=== PATIENT | male | born 1955 | race Caucasian/White ===

== ENCOUNTER 2019-04-13 09:38 | Inpatient (IN) ==
--- NOTE | 2019-03-29 15:23 | PAT Medication Instructions ---
Medication Instructions Date of Service March 29, 2019 Home Medications aspirin [Aspir-81] 81 mg PO QAM doxycycline hyclate 100 mg PO QAM losartan 100 mg PO QAM meloxicam 15 mg PO QAM metoprolol succinate 12.5 mg PO QAM multivitamin 1 tab PO QAM pantoprazole 40 mg PO QAM rosuvastatin 40 mg PO QAM ASK your surgeon for instructions meloxicam 15 mg PO QAM DO NOT take the morning of surgery losartan 100 mg PO QAM metoprolol succinate 12.5 mg PO QAM multivitamin 1 tab PO QAM Take morning of surgery With a small sip of water, OTHERWISE NOTHING TO EAT OR DRINK AFTER MIDNIGHT: aspirin [Aspir-81] 81 mg PO QAM doxycycline hyclate 100 mg PO QAM metoprolol succinate 12.5 mg PO QAM pantoprazole 40 mg PO QAM rosuvastatin 40 mg PO QAM Other Notes If you have any questions please call us at [phone] or [phone] or [phone] or [phone]
--- NOTE | 2019-03-30 13:46 | Anesthesiology Consultation ---
Date of Service March 30, 2019 Assessment & Plan (1) Encounter for pre-operative examination: - Cardiology: 01/26/19: "low risk" Chart Review Chart Review: Acceptable Risk for Surgery (pending EKG tracings (written report in chart)) and Patient seen in Pre Admission Testing Teaching & Discussion Pre-Anesthesia Teaching/Discussion Notes: Instructed NPO after midnight before surgery,except medications with 15 cc of water. Medication instructions provi ded according to the PAT guidelines. History Surgery Operation Date: 04/13/19 07:45 Proposed Procedures p L3-S1 Lumbar Decompression and Fusion, Spinal Cord Monitoring - Yamil jaffe DO Height/Weight Height: 5 ft 10 in Weight: 91.3 kg Allergies Allergy/AdvReac Type Severity Reaction Status Date / Time lisinopril AdvReac Unknown DRY COUGH Verified 03/23/19 08:56 Medications Home Medications Medication Instructions Recorded Confirmed Last Taken aspirin [Aspir-81] 81 mg PO QAM 03/23/19 03/23/19 Unknown doxycycline hyclate 100 mg PO QAM 03/23/19 03/23/19 Unknown losartan 100 mg PO QAM 03/23/19 03/23/19 Unknown meloxicam 15 mg PO QAM 03/23/19 03/23/19 Unknown metoprolol succinate 12.5 mg PO QAM 03/23/19 03/23/19 Unknown multivitamin 1 tab PO QAM 03/23/19 03/23/19 Unknown pantoprazole 40 mg PO QAM 03/23/19 03/23/19 Unknown rosuvastatin 40 mg PO QAM 03/23/19 03/23/19 Unknown Past Medical History Medical History (Updated 03/31/19 @ 08:22 by Anais Avila) Arthritis CAD (coronary artery disease) 2013= LISA x 2 to LCX Chronic back pain B/L hip radiation GERD (gastroesophageal reflux disease) controlled Hyperlipidemia Hypertension Myocardial Infarction NSTEMI (2013) Rosacea on doxycycline Exercise / Class Metabolic Activity II 4-5 Yardwork/Stairs/Walk up hill Past Family History Family History Aunt Family hx of colon cancer Past Surgical History Surgical History History of arthroscopy of left shoulder History of cardiac cath 2014= stents x 2 History of colonoscopy History of esophagogastroduodenoscopy (EGD) Past Anesthesia History No Hx of Anesthesia Complications and No Family Hx of Anesthesia Complications History of PONV No Hx of PONV and No Hx of Motion Sickness Social History Smoking Status: Light tobacco smoker tobacco type: cigarettes and smokeless tobacco Smoking cigarettes per day: 1-2 CIGS A DAY X OFF AND ON-FOR YRS Do You Dip or Chew Tobacco: Yes (4-5 POUCHES/DAY; ADVISED NPO DOS) Hx Alcohol Use: No Alcohol Intake Frequency Comment: RECOVERING ALCOHOLIC; NO ETOH X MONTHS Hx Substance Use: No Review of Systems Reflux controlled. Patient denies chest pain, shortness of breath, dyspnea on exertion, cough, wheezing, palpitations. Physical Exam Vital Signs VITALS BP 121/77 P 65 TEMP 97.9 SP02 96%RA RESP 18 PHYSICAL Full neck and c-spine range of motion (+ cervicalgia with extension). Full TMJ range of motion. TMD 4 finger breaths Mallampati Score 2 Dentition: missing molars, crowns on molars Lungs: clear throughout to auscultation Cardiac: regular rate and rhythm, no murmurs noted Spine: normal Carotid arteries: negative bruit Extremities: no edema + trimmed mccabe Testing Laboratory Results 03/30/19 14:05 PT 10.4 Seconds (9.0-12.0) 03/30/19 14:05 INR 1.0 (0.9-1.1) 03/30/19 14:05 APTT 25.8 Seconds (21.0-31.0) 03/30/19 14:05 Urine Color Yellow 03/30/19 14:05 Urine Appearance Clear (Clear) 03/30/19 14:05 Urine pH 8.0 (4.5-7.5) H 03/30/19 14:05 Ur Specific [place] 1.011 (1.000-1.030) 03/30/19 14:05 Urine Protein Negative (Negative) 03/30/19 14:05 Urine Glucose (UA) Negative (Negative) 03/30/19 14:05 Urine Ketones Negative (Negative) 03/30/19 14:05 Urine Nitrite Negative (Negative) 03/30/19 14:05 Ur Leukocyte Esterase Negative (Negative) 03/30/19 14:05 Blood Type A Positive 03/30/19 14:05 Antibody Screen NEGATIVE 03/30/19 14:05 03/07/19 SODIUM 138 POTASSIUM 4.3 CHLORIDE 107 CO2 25 BUN 19 CREATININE 0.9 GLUCOSE 105 Electrocardiogram Date: 01/11/19 NSR at 83bpm. NS TWA. (per written report/attempting to obtain tracings) Chest X-Ray Date: 03/30/19 Cardiomediastinal and hilar silhouettes are within normal limits. No pneumothorax, pleural effusion, focal airspace consolidation or overt pulmonary edema. Mild hyperinflation. There is mild anterior endplate wedge deformity of a upper thoracic segments, technically age-indeterminate. Degenerative changes of the shoulders and spine. No acute process. Echocardiogram Date: 01/21/19 LVEF 55%. Mild MR. Mild to moderate TR. Mild pulmonary HTN. Physiologic WI. Stress Test Date: 01/21/19 Type: nuclear No evidence of ischemia. Small area of mild intensity resting MPI defect involving the inferior myocardial- this significantly improves on stress imaging/findings are suggestive of small infarct and/or artifact. Mild soft tissue attenuation. LVEF 59%. Cardiac Catheterization Date: 04/11/14 pLAD 60% stenosis. Mid LAD 50% stenosis. Proximal LCX 100% occlusion. pRCA/mid RCA 40% stenosis. Successful stenting of the pCX with 2 overlapping LISA. Other Testing 24 hour Holter monitor: 01/21/19: Average HR 73 bpm. SR 50-105, rare PAV, rare PVC, no pauses, no symptoms
--- NOTE | 2019-03-30 14:21 | XRay Report ---
XR chest Pre-admission PA/Lat HISTORY: 64 years-old Male pat preoperative exam. No acute chest complaints COMPARISON: None available TECHNIQUE: PA and lateral views of the chest FINDINGS: Cardiomediastinal and hilar silhouettes are within normal limits. No pneumothorax, pleural effusion, focal airspace consolidation or overt pulmonary edema. Mild hyperinflation. There is mild anterior en dplate wedge deformity of a upper thoracic segments, technically age-indeterminate. Degenerative swan ges of the shoulders and spine. IMPRESSION: No acute process. The above report was generated using voice recognition software. It may contain grammatical, syntax o r spelling errors. Electronically signed by: Wilton Kam M.D. 03/30/2019 2:19 PM
[2019-03-30 15:30] LABS: Basophils # (auto) 0.02 K/uL (0-0.2); Basophils % (auto) 0.4 %; Eosinophils # (auto) 0.11 K/uL (0-0.5); Eosinophils % (auto) 2.3 %; Hematocrit (blood only) 40.1 % (42-52); Lymphocytes # (auto) 1.09 K/uL (1.2-3.4); Lymphocytes % (auto) 22.7 %; Mean Corpuscular Hemoglobin 29.5 pg (25-34); Mean Corpuscular Hgb Conc 34.9 g/dL (32-36); Mean Corpuscular Volume 84.4 fL (80-100); Monocytes # (auto) 0.41 K/uL (0.11-0.59); Monocytes % (auto) 8.5 %; Neutrophils # (auto) 3.18 K/uL (1.4-6.5); Neutrophils % (auto) 66.1 %; Platelet Count 165 K/uL (130-400); RDW Coefficient of Variation 12.6 % (11.5-14.5); RDW Standard Deviation 38.3 fL (36.4-46.3); Red Blood Count 4.75 M/uL (4.7-6.1); White Blood Count 4.81 K/uL (4.8-10.8)
[2019-03-30 15:33] LABS: Appearance Urine Clear (Clear); Bilirubin Urine Negative (Negative); Blood Urine Negative (Negative); Color Urine Yellow; Glucose Urine UA Negative (Negative); Ketones Urine Negative (Negative); Leukocyte Esterase Urine Negative (Negative); Nitrite Urine Negative (Negative); Protein Urine Negative (Negative); Specific Gravity Urine 1.011 (1.000-1.030); Urobilinogen Urine Negative (Negative)
[2019-03-30 15:42] LABS: Partial Thromboplastin Time 25.8 Seconds (21.0-31.0); Prothrombin Time 10.4 Seconds (9.0-12.0)
[~2019-04-13 09:38] MED LIST: ACETAMINOPHEN 500 MG TAB PO SCH; CEFAZOLIN 2000MG 2,000 MG/15 ML SYR IV SCH; CeleBREX 200 MG CAP PO SCH; GABAPENTIN 600 MG DOSE PO SCH; LR 15ML/HR IV SCH
[2019-04-13] MEDS ORDERED: ePHEDrine sulfate 50 MG/ML AMP IV PRN (10:47)
[2019-04-13] MEDS ORDERED: ATROPINE SULFATE 0.1 MG/ML 10ML SYR IV PRN (10:47)
[2019-04-13] MEDS ORDERED: fentaNYL citrate 100 MCG/2 ML VIAL IV PRN (10:47)
[2019-04-13] MEDS ORDERED: HYDROmorphone INJ 2 MG/ML SYR/VIAL IV PRN (10:47)
[2019-04-13] MEDS ORDERED: METOCLOPRAMIDE HCL INJ 5 MG/ML 2 ML VIAL IV PRN ×2 (10:47→16:20)
[2019-04-13] MEDS ORDERED: PROMETHAZINE HCL 12.5 MG in SODIUM CHLORIDE 0.9% 50 ML IV PRN ×2 (10:47→16:20)
--- NOTE | 2019-04-13 12:01 | History & Physical Bridge Note ---
Date of Service April 13, 2019 History & Physical Bridge Note I have examined the patient, reviewed the History & Physical and in the interval since the performance of the History & Physical I have noted the following changes of clinical significance: no changes noted
--- NOTE | 2019-04-13 12:02 | History & Physical Report ---
Date of Service April 13, 2019 Assessment & Plan (1) Neurogenic claudication due to lumbar spinal stenosis: Lumbar decompression and fusion L3-S1 Present on Admission?: Yes History of Present Illness Chief Complaint: Back and bilateral leg pain Primary Care Provider: Robin Connell MD This is a 64-year-old male who presents with chronic persistent back and bilateral leg pain. After failing extensive course of nonoperative care is here for surgical intervention. Allergies Allergy/AdvReac Type Severity Reaction Status Date / Time lisinopril AdvReac Unknown DRY COUGH Verified 04/13/19 10:05 Home Medications Home Medications Medication Instructions Recorded Confirmed Type aspirin [Aspir-81] 81 mg PO QAM 03/23/19 04/13/19 History doxycycline hyclate 100 mg PO QAM 03/23/19 04/13/19 History losartan 100 mg PO QAM 03/23/19 04/13/19 History meloxicam 15 mg PO QAM 03/23/19 03/23/19 History metoprolol succinate 12.5 mg PO QAM 03/23/19 03/23/19 History multivitamin 1 tab PO QAM 03/23/19 04/13/19 History pantoprazole 40 mg PO QAM 03/23/19 03/23/19 History rosuvastatin 40 mg PO QAM 03/23/19 03/23/19 History Past Med/Surg History Family History Aunt Family hx of colon cancer Social History Preferred Language: Setswana Communication Ability: Effective Oracle Database Architect Required: No Beliefs That Will Affect Care: None Current Living Situation: Spouse Other Information That Helps Us Care for You: No Feels Safe at Home: Yes Safety Concerns: Feels Safe At This Time Smoking Status: Light tobacco smoker Tobacco Type: cigarettes and smokeless tobacco ; Cigarettes Per Day: 1-2 CIGS A DAY X OFF AND ON-FOR YRS ; Do You Dip or Chew Tobacco: Yes (4-5 POUCHES/DAY; ADVISED NPO DOS) ; Second Hand Exposure: Yes (VERY RARELY) ; Hx Alcohol Use: No Hx Substance Use: No Physical Exam Physical Exam: Patient is alert and oriented neurologically intact. Results & Data Vital Signs (Past 12 Hours) Vital Signs Temp Pulse Resp BP Pulse Ox 04/13/19 10:10 36.3 C L 67 18 132/89 97
[2019-04-13] MEDS ORDERED: fentaNYL citrate 100 MCG/2 ML VIAL ONE ×7 (12:03→15:47)
[2019-04-13] MEDS ORDERED: MIDAZOLAM HCL 1 MG/ML 2ML VIAL ONE (12:03)
[2019-04-13] MEDS ORDERED: BUPIVACAINE/EPINEPHRINE 0.25% 1:200,000 30 ML VIAL ONE (12:20)
[2019-04-13] MEDS ORDERED: BACITRACIN INJ 50,000 UNIT VIAL ONE (12:20)
[2019-04-13] MEDS ORDERED: HYDROmorphone INJ 2 MG/ML SYR/VIAL ONE ×3 (12:51→14:50)
[2019-04-13] MEDS ORDERED: FLOSEAL HEMOSTATIC MATRIX 10ML TOP ONE (14:37)
--- NOTE | 2019-04-13 14:47 | Operative Report ---
Post Operative Report Pre & Post Diagnosis Operation Date: 04/13/19 11:45 Pre-Op Diagnosis: LUMBAR SPINAL STENOSIS W/NEUROGENIC CLAUDICATION Post-Op Diagnosis: LUMBAR SPINAL STENOSIS W/NEUROGENIC CLAUDICATION I identified the patient and participated in the time-out.: Yes Procedure Operation Date: 04/13/19 11:45 Actual Procedures #1 lumbar decompression with bilateral medial facetectomies foraminotomies L3-4 L4-5 L5-S1. #2 posterior spinal fusion L3-4 L4-5 L5-S1. #3 placement posterior segmental instrumentation L3-S1. #4 interbody fusion L4-5 L5-S1. #5 placement of peek cage 11 x 26 mm at L4-5 and L5-S1. #6 placement locally harvested morselized autograft in the posterior lateral gutters. #7 placement infuse collagen sponge master graft in the posterior gutters and ostial amp and interbody space. Surgeon Yamil Goldsmith, Solution Director Anisa Bui Estimated Blood Loss 375 Findings Consistent with Post-Op Diagnosis Specimens None Indications Patient undergone extensive course of nonoperative care continue to have back and leg symptoms elected to go the above-mentioned procedure. Description of Procedure Patient was met with identified informed consent obtained. Patient was then taken to the operative suite underwent intubation placed in a prone position on the Mode table on top of the Pete frame. All bony prominences well-padded eyes inspected to ensure no external pressure placed upon them. Lumbar spine was then prepped and draped in normal sterile fashion. Sharp dissection with the assistance of Bovie cautery was then performed down to and exposing the lamina transverse processes of L3-L4-L5 and sacral ala bilaterally. From a caudal cephalad fashion complete laminectomy of L5 L4 and L3 was performed including bilateral medial facetectomies and foraminotomies addressing all stenosis. Pedicle screw was then placed in L3-L4-L5 and S1 levels bilaterally with assistance of fluoroscopy the purposes carey placed. By way of a transforaminal approach and left complete discectomy of L5-S1 was performed endplates curetted to subcortical being bone and a 11 x 26 mm peek cage filled with osteo-bone graft tapped in position. Then proceeded L4-[address] of a transforaminal approach and left complete discectomy performed endplates curetted to subcortical bleeding bone and another 11 x 26 mm cage filled with osteo-bone graft tapped in position. The rods were then locked in final position bilaterally. The transverse processes of L3-L4-L5 and sacral ala bur to subcortical leading bone. Infuse collagen sponge master graft and local autograft was placed in the posterior lateral gutters. 15 round TIFFANIE drain inserted. The incision was then closed with 1 Vicryl in the fascia 2-0 Vicryl subcutaneously and 4 Monocryl for final skin closure. Steri-Strip sterile dressings placed. Patient will continue to PACU stable condition. Please note Anisa Bui was present at the entire procedure about the patient positioning complex portions of the surgery and final skin closure. Lastly spinal cord monitoring was utilized that the procedure no changes noted. I attest to the content of the Intraoperative Record and any orders documented therein. Any exceptions are noted below.
[2019-04-13] MEDS ORDERED: KETOROLAC 30 MG/ML VIAL ONE (14:53)
[2019-04-13] MEDS ORDERED: PROPOFOL IV EMULSION 10 MG/ML 20 ML VIAL IV ONE (14:53)
[2019-04-13] MEDS ORDERED: DEXAMETHASONE SOD INJ 4 MG/ML VIAL ONE (14:53)
[2019-04-13] MEDS ORDERED: GLYCOPYRROLATE 0.2 MG/ML VIAL ONE (14:53)
[2019-04-13] MEDS ORDERED: LIDOCAINE HCL 2% 2 ML VIAL/AMP(20MG/ML) INFIL ONE (14:53)
[2019-04-13] MEDS ORDERED: NEOSTIGMINE METHYLSULFATE 1 MG/ML 10ML VIAL ONE (14:53)
[2019-04-13] MEDS ORDERED: ONDANSETRON INJ 2 MG/ML 2 ML VIAL ONE (14:53)
[2019-04-13] MEDS ORDERED: PHENYLEPHRINE 100MCG/ML 5ML SYR ONE (14:53)
[2019-04-13] MEDS ORDERED: ePHEDrine sulfate 50 MG/ML SYR ONE (14:53)
[2019-04-13] MEDS ORDERED: ROCURONIUM BROMIDE 10 MG/ML 5 ML VIAL ONE (14:53)
[2019-04-13] MEDS ORDERED: LARYING-O-JET KIT (LTA) ONE (15:01)
--- NOTE | 2019-04-13 15:08 | Fluoroscopy Report ---
INTRAOPERATIVE RADIOGRAPHS CLINICAL HISTORY: L3-S1 spinal fusion. Fluoroscopy time: 20 seconds. FINDINGS: 2 spot fluoroscopic views of the lumbar spine are presented. There has been discectomy at L 4-L5 and L5-S1. There has been laminectomy and posterior fusion from L3-S1. Interpedicular screws are present at all levels. The orthopedic hardware appears intact. IMPRESSION: Intraoperative images from L3-L5 spinal fusion as above. Electronically signed by: Donaldo Davidson M.D. 04/13/2019 3:06 PM
[2019-04-13] MEDS ORDERED: ESMOLOL HCL INJ 10 MG/ML 10ML VIAL IV ONE (15:09)
--- NOTE | 2019-04-13 15:40 | Anesthesiology Progress Note ---
Date of Service April 13, 2019 Anesthesia Post Procedure Vital Signs Vital Signs: Temp Pulse Pulse Resp BP Pulse Ox 04/13/19 15:11 36.4 C L 83 16 145/91 H 100 04/13/19 10:10 36.3 C L 67 18 132/89 97 Transfer of Care Handoff Completed per policy Notes Mental Status: alert / awake / arousable and participated in evaluation Patient Amnestic to Procedure: Yes Nausea / Vomiting: adequately controlled Pain: adequately controlled Airway Patency, RR, SpO2: stable & adequate BP & HR: stable & adequate Hydration State: stable & adequate Anesthetic Complications: no major complications apparent
[2019-04-13] MEDS ORDERED: ACETAMINOPHEN 500 MG TAB PO PRN (16:20)
[2019-04-13] MEDS ORDERED: ONDANSETRON INJ 2 MG/ML 2 ML VIAL IV PRN (16:20)
[2019-04-13] MEDS ORDERED: ACETAMINOPHEN 1,000 MG/100 ML VIAL IV PRN (16:20)
[2019-04-13] MEDS ORDERED: DO NOT ADMINISTER FLU VACCINE PRN (16:20)
[2019-04-13] MEDS ORDERED: ALUMINUM/MAGNESIUM SUSP 30 ML UDC PO PRN (16:20)
[2019-04-13] MEDS ORDERED: NALOXONE HCL 0.4 MG/1 ML VIAL/CARP IV PRN (16:20)
[2019-04-13] MEDS ORDERED: SOD PHOSPHATE/SOD BIPHOSPHATE ENEMA 132 ML BTL PR PRN (16:20)
[2019-04-13] MEDS ORDERED: LORazepam 0.5 MG TAB PO PRN (16:20)
[2019-04-13] MEDS ORDERED: bisacodyL 10 MG SUPP PR PRN (16:20)
[2019-04-13] MEDS ORDERED: LORazepam 0.5 MG/1 ML VIAL IV PRN (16:20)
[2019-04-13] MEDS ORDERED: FAMOTIDINE 20 MG TAB PO PRN (16:20)
[2019-04-13] MEDS ORDERED: ONDANSETRON 4 MG OD TAB PO PRN (16:20)
[2019-04-13] MEDS ORDERED: MAGNESIUM HYDROXIDE SUSP 30 ML UDC PO PRN (16:20)
[2019-04-13] MEDS ORDERED: DO NOT ADMINISTER PNEUMOCOCCAL VACCINE PRN (16:20)
[2019-04-13] MEDS ORDERED: HYDROmorphone INJ 0.5 MG/0.5 ML SYR IV PRN (16:20)
[2019-04-13] MEDS: LACTATED RINGER'S 1,000 ML IV SCH ×2 (16:42→22:09)
[2019-04-13] MEDS: KETOROLAC 30 MG/ML VIAL IV SCH ×2 (17:48→22:11)
[2019-04-13] MEDS: CEFAZOLIN 2000MG 2,000 MG/15 ML SYR IV SCH (17:48)
[2019-04-13] MEDS: DOCUSATE SODIUM/SENNA 50/8.6MG TAB PO SCH (21:15)
[2019-04-14] MEDS: CEFAZOLIN 2000MG 2,000 MG/15 ML SYR IV SCH (02:39)
[2019-04-14] MEDS: KETOROLAC 30 MG/ML VIAL IV SCH ×2 (04:32→10:23)
[2019-04-14] MEDS: POLYETHYLENE (MIRALAX) 17 GM PACK PO SCH ×4 (04:32→23:24)
[2019-04-14 06:31] LABS: Basophils # (auto) 0.01 K/uL (0-0.2); Basophils % (auto) 0.2 %; Eosinophils # (auto) 0.06 K/uL (0-0.5); Eosinophils % (auto) 1.1 %; Hematocrit (blood only) 29.5 % (42-52); Hemoglobin 10.1 g/dL (14.0-18.0); Lymphocytes # (auto) 0.77 K/uL (1.2-3.4); Lymphocytes % (auto) 14.6 %; Mean Corpuscular Hemoglobin 29.4 pg (25-34); Mean Corpuscular Hgb Conc 34.2 g/dL (32-36); Mean Corpuscular Volume 85.8 fL (80-100); Mean Platelet Volume 9.6 fL (7.4-10.4); Monocytes # (auto) 0.38 K/uL (0.11-0.59); Monocytes % (auto) 7.2 %; Neutrophils # (auto) 4.07 K/uL (1.4-6.5); Neutrophils % (auto) 76.9 %; Platelet Count 104 K/uL (130-400); RDW Coefficient of Variation 12.7 % (11.5-14.5); RDW Standard Deviation 39.8 fL (36.4-46.3); Red Blood Count 3.44 M/uL (4.7-6.1); White Blood Count 5.29 K/uL (4.8-10.8)
[2019-04-14 07:01] LABS: BUN Creatinine Ratio 14.2 (10-20); Calcium 8.4 mg/dl (8.5-10.1); Creatinine Clr Calc Pharmacy 99.3 ml/min; Est GFR (African American) 106.2; Est GFR (Non-African American) 91.6; Potassium 3.8 mmol/L (3.5-5.1)
--- NOTE | 2019-04-14 08:31 | Orthopedic Progress Note ---
Date of Service April 14, 2019 Assessment & Plan (1) Neurogenic claudication due to lumbar spinal stenosis: This time initiate physical therapy advance his bowel regiment anticipate discharge home in the next few days. Present on Admission?: Yes Subjective Back pain controlled leg symptoms improved. Physical Exam Physical Exam: Patient is good strength testing appears comfortable. Results & Data Vital Signs (Past 12 Hours) Vital Signs Temp Pulse Resp BP Pulse Ox 04/14/19 07:29 36.8 C 76 16 142/77 H 97 04/14/19 02:46 36.5 C 71 18 148/79 H 98 04/13/19 23:16 36.5 C 77 16 137/81 98
[2019-04-14] MEDS: ASPIRIN 81 MG ECTAB PO SCH (08:56)
[2019-04-14] MEDS: METOPROLOL SUCC 25MG EXT REL TAB PO SCH (08:56)
[2019-04-14] MEDS: MULTIVITAMIN TAB PO SCH (08:57)
[2019-04-14] MEDS: PANTOprazole 40 MG TAB PO SCH (08:57)
[2019-04-14] MEDS: LOSARTAN POTASSIUM 50 MG TAB PO SCH (08:57)
[2019-04-14] MEDS: ROSUVASTATIN CALCIUM 20 MG TAB PO SCH (08:57)
[2019-04-14] MEDS: OXYCODONE HCL IR 5 MG TAB (IMMEDIATE RELEASE) PO PRN ×3 (09:05→17:51)
--- NOTE | 2019-04-14 14:39 | Anesthesiology Progress Note ---
Date of Service April 14, 2019 Anesthesia Post Procedure Vital Signs Vital Signs: Temp Pulse Pulse Pulse Resp BP Pulse Ox 04/14/19 12:27 36.9 C 71 16 119/76 96 04/14/19 07:29 36.8 C 76 16 142/77 H 97 04/14/19 02:46 36.5 C 71 18 148/79 H 98 04/13/19 23:16 36.5 C 77 16 137/81 98 04/13/19 19:35 36.4 C L 79 17 115/70 96 04/13/19 18:21 36.4 C L 85 16 138/79 95 04/13/19 17:34 36.3 C L 85 16 133/82 98 04/13/19 16:54 36.0 C L 64 17 151/91 H 98 04/13/19 16:20 36.4 C L 81 16 163/92 H 96 04/13/19 16:10 36.6 C 71 16 135/82 98 04/13/19 16:00 71 16 129/88 97 04/13/19 15:50 87 16 147/86 H 98 04/13/19 15:40 87 16 153/94 H 100 04/13/19 15:30 75 16 150/80 H 100 04/13/19 15:20 68 16 137/86 98 04/13/19 15:11 36.4 C L 83 16 145/91 H 100 Notes Mental Status: alert / awake / arousable and participated in evaluation Patient Amnestic to Procedure: Yes Nausea / Vomiting: adequately controlled Pain: adequately controlled Airway Patency, RR, SpO2: stable & adequate BP & HR: stable & adequate Hydration State: stable & adequate Anesthetic Complications: no major complications apparent and Pt Satisfied with anesthetic care
[2019-04-14] MEDS: DOCUSATE SODIUM/SENNA 50/8.6MG TAB PO SCH (20:09)
[2019-04-15] MEDS: POLYETHYLENE (MIRALAX) 17 GM PACK PO SCH ×4 (05:30→23:10)
[2019-04-15] MEDS: HYDROmorphone INJ 1 MG/ML SYRINGE IV PRN ×2 (07:32→11:38)
[2019-04-15] MEDS: LOSARTAN POTASSIUM 50 MG TAB PO SCH (07:36)
[2019-04-15] MEDS: METOPROLOL SUCC 25MG EXT REL TAB PO SCH (07:36)
[2019-04-15] MEDS: ASPIRIN 81 MG ECTAB PO SCH (07:36)
[2019-04-15] MEDS: MULTIVITAMIN TAB PO SCH (07:36)
[2019-04-15] MEDS: PANTOprazole 40 MG TAB PO SCH (07:36)
[2019-04-15] MEDS: ROSUVASTATIN CALCIUM 20 MG TAB PO SCH (07:37)
--- NOTE | 2019-04-15 10:48 | Orthopedic Progress Note ---
Date of Service April 15, 2019 Assessment & Plan (1) Neurogenic claudication due to lumbar spinal stenosis: This time we will continue physical therapy advance his bowel regiment anticipate discharge home tomorrow. Present on Admission?: Yes Subjective Back pain controlled leg symptoms improved. Physical Exam Physical Exam: Patient is in the chair at the bedside is good strength testing appears comfortable. Results & Data Vital Signs (Past 12 Hours) Vital Signs Temp Pulse Pulse Resp BP Pulse Ox 04/15/19 07:52 37.7 C H 86 18 120/58 L 96 04/15/19 06:55 37.8 C H 87 16 114/63 95 04/14/19 23:39 37.6 C H 80 16 115/62 94
[2019-04-15 14:46] LABS: Appearance Urine Clear (Clear); Bilirubin Urine Negative (Negative); Blood Urine Negative (Negative); Color Urine Dark Yellow; Glucose Urine UA Negative (Negative); Ketones Urine Negative (Negative); Leukocyte Esterase Urine Negative (Negative); Nitrite Urine Negative (Negative); Protein Urine Negative (Negative); Specific Gravity Urine 1.018 (1.000-1.030); Urobilinogen Urine Negative (Negative); pH Urine 5.5 (4.5-7.5)
[2019-04-15] MEDS: TRAMADOL HCL 50 MG TABLET PO PRN (20:11)
[2019-04-15] MEDS: DOCUSATE SODIUM/SENNA 50/8.6MG TAB PO SCH (20:11)
[2019-04-16] MEDS: POLYETHYLENE (MIRALAX) 17 GM PACK PO SCH ×2 (06:09→11:52)
[2019-04-16] MEDS: TRAMADOL HCL 50 MG TABLET PO PRN (07:52)
[2019-04-16] MEDS: METOPROLOL SUCC 25MG EXT REL TAB PO SCH (07:53)
[2019-04-16] MEDS: MULTIVITAMIN TAB PO SCH (07:54)
[2019-04-16] MEDS: ROSUVASTATIN CALCIUM 20 MG TAB PO SCH (07:54)
[2019-04-16] MEDS: ASPIRIN 81 MG ECTAB PO SCH (07:54)
[2019-04-16] MEDS: PANTOprazole 40 MG TAB PO SCH (07:54)
[2019-04-16] MEDS: LOSARTAN POTASSIUM 50 MG TAB PO SCH (07:54)
--- NOTE | 2019-04-16 10:09 | Discharge Summary ---
Date of Service April 16, 2019 Admission HPI Per Admitting Provider This is a 64-year-old male who presents with chronic persistent back and bilateral leg pain. After failing extensive course of nonoperative care is here for surgical intervention. Principal Diagnosis Lumbar spinal stenosis with neurogenic claudication Discharge Data Allergies Allergy/AdvReac Type Severity Reaction Status Date / Time lisinopril AdvReac Unknown DRY COUGH Verified 04/13/19 10:05 Consultations 04/13/19 16:20 Consult Case Management - Discharge Planning Routine Procedures Performed Operation Date: 04/13/19 11:45 Actual Procedures p L3-S1 Lumbar Decompression and Fusion, Spinal Cord Monitoring, Interbody cage at L4-L5 and L5-S1 - Yamil Goldsmith DO Ordered Studies 04/13/19 11:45 FL fluoroscopy <1hr Routine FL lumbar spine 2-3V Routine Hospital Course (1) Neurogenic claudication due to lumbar spinal stenosis: Patient went lumbar decompression fusion troll as well as taken the orthopedic floor postoperative. Postop day 1 is up ambulating progressed the postop day #2. Postop day #3. He was ambulating well without difficulty. Neurologically intact. TIFFANIE drain decreased probably. Subsequent discharge home. Discharge orders instructions from the chart for further review. Total Time Total Time Spent Total Time Spent (In Minutes): 20 minutes Discharge Plan Discharge Items Patient Disposition: Home - Self-Care Reason For Visit: LUMBAR SPINAL STENOSIS W/NEUROGENIC CLAUDICATION Discharge Diagnosis: lumbar stenosis Activity: As commented below Non-emergency contact: Primary Care Provider Call non-emergency contact if: you have any medication questions Follow-up/Referrals: Robin Connell MD [Primary Care Provider] - Diet: Regular Addtl Attending Provider Instructions: ACTIVITY RECOMMENDATIONS: SELF CARE INSTRUCTIONS AFTER THORACIC/LUMBAR FUSIONS 1. You may walk to your tolerance. It is good exercise for your legs and back. Expect some back and intermittent leg aches and pains. 2. You may perform "counter-top" level activities (make a sandwich, alberto with a project, etc.). 3. No bending or lifting of more than 10 pounds or back twisting of any nature (roll like a log when turning in bed). 4. You may ride in a car for 20-30 minutes at a time. No driving until after your first visit with your doctor. 5. Frequent changes of position and restricting sitting to 30 minutes at a time will help limit the amount of back spasms and stiffness you may experience. 6. You may discontinue the use of ambulatory aids (cane, crutches, etc.) once your strength and confidence allow. 7. You may principal architectural firm the shower and let water strike your incision when you arrive home at least once daily. Do not take a tub bath, sit in a hot tub or go into a swimming pool until after your first recheck in the office. SPECIAL CARE INSTRUCTIONS: VERY IMPORTANT TO READ AND REVIEW A. Your surgical incision has been closed with a cosmetic suture under the skin that will dissolve in about 6 weeks. In 14 days, you can use a pair of clean scissors and cut the suture that is left outside of the skin at the ends of your incision. 1. The small skin tapes can be removed 7 days after surgery if they have not fallen off by that point. 2. You may keep the wound open to air as much as possible to promote healing after post-op day number 5 unless told otherwise by your doctor. 3. If you think the wound looks like it is becoming infected (redness or wor sening drainage) and/or you are experiencing fever, chill or worsening back pain and muscle spasms, contact the office so that we may evaluate you as soon as possible. B. Complications are uncommon, but please contact us if you have any signs or symptoms of: 1. wound infection (fever higher than 102.5 degrees F, redness, separation of wound, drainage, or increasing pain from the incision) 2. blood clots in legs (pain, swelling, redness and warmth in legs) 3. urinary tract infection (fever higher than 102.5 degrees F, burning upon urination or increased frequency of urination) 4. nerve problems (inability to walk on your toes or heels, numbness, loss of bowel or bladder control) 5. any other symptoms that concern you C. Please call the office at if you have any concerns or questions about your operation or recovery. D. No smoking! Smoking drastically decreases the chance of a solid fusion. E. Do not take any anti-inflammatory medications (Indocin, Advil, Motrin, Aspirin, Naprosyn, etc.) as these may inhibit the chance of a solid fusion. Tylenol is okay to take for pain. MANAGING PAIN AFTER SPINAL SURGERY 1. Narcotic medication is intended for short-term use and will be provided for surgical pain. Surgical pain usually lasts for a period of 4-6 weeks. Narcotic medication includes Percocet, Vicodin, Darvocet, Tylenol #3 or Lortab. 2. Longer-term pain is more appropriately treated with non-narcotic medication such as Tylenol ES. 3. Muscle spasm is not appropriately treated with narcotics. Muscle relaxers such as Soma, Flexeril or Skelaxin can be used along with Tylenol ES. 4. Remember that we all live with some "aches and pains". This is not unusual or uncommon after an injury or as we get older. a. Back pain is expected and may include muscle spasms for 4 to 6 weeks after surgery. The pain should gradually improve. If the pain worsens for no apparent reason, please contact the office. b. Intermittent leg pain may also be experienced and should not be concerned about unless it worsens for no apparent reason. If so, please contact the office. 5. We will provide appropriate medication within the normal guidelines of their prescribed use. We will also be very cautious and aware of potential abuse and extended duration of patients' medication needs. a. Pain medications are for your comfort and to assist with sleep and rest so that the tissue can heal. They are not provided in order to return to normal activity and should not be used through the day. To do so or worsening pain at night can result from ongoing tissue damage and development of tolerance to the prescribed medicine. 6. Please allow 2-3 days to process refills. Prescriptions will not be mailed but must be picked up at the office. FOLLOW UP VISIT: Keep your scheduled follow-up appointment. Any questions, please call the office at . Pending Studies at Discharge: No Stand-Alone Forms: [employer], Smoking Cessation Medications and DC Order Prescriptions: New tramadol 50 mg tablet 50 mg PO Q6H PRN (Reason: pain, moderate) Qty: 30 RF: 0 oxycodone 5 mg tablet 5 mg PO Q6H PRN (Reason: pain, severe) Qty: 30 RF: 0 Continued multivitamin Tablet 1 tab PO QAM RF: 0 doxycycline hyclate 100 mg Capsule 100 mg PO QAM RF: 0 meloxicam 15 mg Tablet 15 mg PO QAM RF: 0 aspirin [Aspir-81] 81 mg Tablet,Delayed Release (Dr/Ec) 81 mg PO QAM RF: 0 pantoprazole 40 mg Tablet,Delayed Release (Dr/Ec) 40 mg PO QAM RF: 0 metoprolol succinate 25 mg Tablet Extended Release 24 Hr 12.5 mg PO QAM RF: 0 losartan 100 mg Tablet 100 mg PO QAM RF: 0 rosuvastatin 40 mg Tablet 40 mg PO QAM RF: 0 Discharge Orders: Discharge Order (Routine); Ordered 04/16/19 Ordered By: Yamil Goldsmith Admission Data Admit Date/Time: 04/13/19 15:24 Attending Provider: Yamil Goldsmith Admit Provider: Yamil Goldsmith Primary Care Provider: Robin Connell
== END 2019-04-16 12:04 | disposition home or self-care (01) | DRG 455 ==
LOC: ASU 09:38 → 3E 15:24